=== PATIENT | male | born 1940 | race Caucasian/White ===

== ENCOUNTER 2017-06-09 12:26 | Emergency (ER) | payer MEDICARE, OTHER ==
[~2017-06-09] VITALS: Ht 175.3 cm; Wt 106.6 kg
[~2017-06-09 12:26] MED LIST: ARIXTRA; BYSTOLIC 5 MG5 M1 PO; ELIQUIS2.5 MG PO; FISHOIL PO; IBUPROFEN 200200 M1 PO; LIPITOR10 MG PO; LOSARTAN POTAS100 MG PO; MICARDIS HCT 81 EACH PO; MOM; OXYCONTIN10 M1 PO; OXYIR5 MG PO; PERCOCET PO; TRICOR145 MG PO; TYLENOL PM EX-1 EACH PO
[2017-06-09 13:32] LABS: HEMATOCRIT 45.3 % (42.0-52.0); HEMOGLOBIN 15.2 gm/dL (14.0-18.0); MCH 29.6 pg (26.0-34.0); MCHC 33.5 g/dL (28.0-37.0); MCV 88.4 fL (80.0-100.0); MPV 8.6 fl. (7.2-11.1); NUCLEATED RBCS 0 /100WBC; PLATELET COUNT* 166 thou/uL (150-400); RBC 5.13 mil/uL (4.50-6.00); WBC 12.7 thou/uL (4.0-11.0)
[2017-06-09 13:39] LABS: POTASSIUM 3.6 mmol/L (3.5-5.1)
[2017-06-09 13:40] LABS: APTT 33.4 Seconds (25.0-31.3); INR 1.2; PROTIME 11.2 Seconds (9.20-11.50)
[2017-06-09 13:44] LABS: ALBUMIN 3.1 g/dL (3.4-5.0); TOTAL BILIRUBIN 0.7 mg/dL (<0.1-1.0); TOTAL PROTEIN 7.6 g/dL (6.4-8.2)
[2017-06-09 13:55] LABS: ABSOLUTE LYMPHOCYTES 0.8 thou/uL (0.8-5.3); ABSOLUTE MONOCYTES 1.1 thou/uL (0.0-1.2); ABSOLUTE NEUTROPHILS 10.8 thou/uL (1.6-8.1); ATYPICAL LYMPHS 2 %; PLATELET ESTIMATE ADEQUATE
[2017-06-09] MEDS ORDERED: NORCO 5-325 TA1 EACH PO (15:27)
[2017-06-09] MEDS ORDERED: CIPROFLOXACIN500 M1 PO (15:27)
[2017-06-09] MEDS ORDERED: NYSTATIN15 G3 TOP (15:27)
[2017-06-09 15:57] VITALS: BP 133/80
== END 2017-06-09 15:58 | disposition home or self-care (01) ==
LOC: M.ERS 12:26
PROVIDERS: Family Medicine
DX: N45.1 Epididymitis (principal); N50.89 Other specified disorders of the male genital organs; I10 Essential (primary) hypertension; E78.5 Hyperlipidemia, unspecified; M79.604 Pain in right leg; M79.605 Pain in left leg

== ENCOUNTER → 2017-07-13 | Outpatient (CLI) | payer MEDICARE, OTHER ==
[~2017-07-13] MED LIST changes: +CIPROFLOXACIN500 M1 PO; +NORCO 5-325 TA1 EACH PO; +NYSTATIN15 G3 TOP
[2017-07-13 09:02] LABS: ABSOLUTE EOSINOPHILS 0.1 thou/uL (0.0-0.7); ABSOLUTE LYMPHOCYTES 1.7 thou/uL (0.8-5.3); ABSOLUTE MONOCYTES 0.6 thou/uL (0.0-1.2); ABSOLUTE NEUTROPHILS 4.3 thou/uL (1.6-8.1); BASOPHILS 0.5 %; EOSINOPHILS 2.1 %; HEMATOCRIT 40.1 % (42.0-52.0); HEMOGLOBIN 13.5 gm/dL (14.0-18.0); LYMPHOCYTES 24.7 %; MCHC 33.6 g/dL (28.0-37.0); MCV 86.3 fL (80.0-100.0); MONOCYTES 8.3 %; MPV 8.1 fl. (7.2-11.1); NUCLEATED RBCS 0 /100WBC; PLATELET COUNT* 257 thou/uL (150-400); POLYS 64.4 %; RBC 4.64 mil/uL (4.50-6.00); WBC 6.7 thou/uL (4.0-11.0)
[2017-07-13 09:08] LABS: CALCIUM 9.7 mg/dL (8.5-10.1); CREATININE 1.5 mg/dL (0.6-1.3); POTASSIUM 3.9 mmol/L (3.5-5.1)
== END ==
LOC: M.ULTRA 08:34
PROVIDERS: Urology
DX: N43.3 Hydrocele, unspecified (principal); N50.82 Scrotal pain

== ENCOUNTER → 2017-08-08 | Outpatient (CLI) | payer MEDICARE, OTHER | LOC: M.ULTRA 07:35 | DX: N28.1 Cyst of kidney, acquired (principal) ==

== ENCOUNTER → 2017-10-17 | Outpatient (CLI) | payer MEDICARE, OTHER | LOC: M.ULTRA 06:38 | DX: N43.2 Other hydrocele (principal); N45.1 Epididymitis; N45.3 Epididymo-orchitis ==

== ENCOUNTER → 2018-01-29 | Outpatient (CLI) | payer MEDICARE, OTHER | LOC: M.ULTRA 07:08 | DX: G45.9 Transient cerebral ischemic attack, unspecified (principal); I10 Essential (primary) hypertension; R55 Syncope and collapse; E78.5 Hyperlipidemia, unspecified ==

== ENCOUNTER 2018-11-30 16:49 | Emergency (ER) | payer MEDICARE, OTHER ==
[~2018-11-30] VITALS: Ht 175.3 cm; Wt 104.3 kg
[2018-11-30] MEDS ORDERED: PREDNISONE 20 M20 MG PO (17:52)
[2018-11-30] MEDS ORDERED: CLARITIN10 MG PO (17:52)
[2018-11-30 18:07] VITALS: BP 193/95
== END 2018-11-30 18:07 | disposition home or self-care (01) ==
LOC: M.ERS 16:49
DX: T63.441A Toxic effect of venom of bees, accidental (unintentional), initial encounter (principal); E78.5 Hyperlipidemia, unspecified; I10 Essential (primary) hypertension; Z90.49 Acquired absence of other specified parts of digestive tract; Z98.41 Cataract extraction status, right eye; Z98.42 Cataract extraction status, left eye; Z96.652 Presence of left artificial knee joint; Z91.030 Bee allergy status; Z98.890 Other specified postprocedural states; Y92.89 Other specified places as the place of occurrence of the external cause

== ENCOUNTER 2021-04-10 18:32 | Inpatient (IN) | payer MEDICARE, OTHER ==
[~2021-04-10] VITALS: Ht 172.7 cm; Wt 99.8 kg
[~2021-04-10 18:32] MED LIST changes: +CLARITIN10 MG PO; +PREDNISONE 20 M20 MG PO
[2021-04-10 19:05] VITALS: BP 211/137
[2021-04-10 20:40] LABS: ABSOLUTE EOSINOPHILS 0.1 thou/uL (0.0-0.7); ABSOLUTE MONOCYTES 0.6 thou/uL (0.0-1.2); BASOPHILS 0.4 %; EOSINOPHILS 1.5 %; HEMOGLOBIN 16.3 gm/dL (14.0-18.0); LYMPHOCYTES 25.9 %; MCH 31.2 pg (26.0-34.0); MCHC 33.9 g/dL (28.0-37.0); MCV 91.9 fL (80.0-100.0); MONOCYTES 8.2 %; MPV 8.1 fl. (7.2-11.1); NUCLEATED RBCS 0 /100WBC; PLATELET COUNT* 222 thou/uL (150-400); RBC 5.22 mil/uL (4.50-6.00); RDW-CV 13.3 % (10.5-14.5); WBC 7.8 thou/uL (4.0-11.0)
[2021-04-10 20:49] LABS: CALCIUM 9.1 mg/dL (8.5-10.1); CREATININE 1.2 mg/dL (0.6-1.3); POTASSIUM 3.7 mmol/L (3.5-5.1)
[2021-04-10 20:51] LABS: INR 1.1; PROTIME 11.4 Seconds (9.20-11.50)
[2021-04-10 20:59] LABS: ALBUMIN 3.6 g/dL (3.4-5.0); TOTAL PROTEIN 7.5 g/dL (6.4-8.2)
[2021-04-10 21:19] LABS: URINE BILIRUBIN NEGATIVE (Negative); URINE BLOOD NEGATIVE (Negative); URINE CLARITY CLEAR; URINE COLOR YELLOW; URINE GLUCOSE-RANDOM NEGATIVE (Negative); URINE KETONES NEGATIVE (Negative); URINE LEUKOCYTES-REFLEX NEGATIVE (Negative); URINE NITRITE-REFLEX NEGATIVE (Negative); URINE PROTEIN 1+ (Negative); URINE UROBILINOGEN 0.2 E.U./dl (0.2-1.0)
[2021-04-11 03:24] VITALS: BP 157/92
[2021-04-11 07:30] VITALS: BP 168/86
--- NOTE | 2021-04-11 10:39 | EKG ---
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 : 1940 Requested By: Haydee Reyes Order Number: [id number] MD: Viet Nelson Measurements Intervals [place] Rate: 76 P: SD: QRS: -21 QRSD: 98 T: 23 QT: 425 QTc: 478 Interpretive Statements Atrial fibrillation Borderline left axis deviation Anteroseptal infarct, old Compared to ECG 03/30/2017 09:16:24 Myocardial infarct finding now present Sinus rhythm no longer present Electronically Signed On 04-11-2021 10:39:42 CREDIT CONTROL CLERK by Viet Nelson [email or web address] <ELECTRONICALLY SIGNED> By: Yeimi Nelson MD, FACC 04/11/21 1039 17 17 Yeimi Nelson MD, FACC /EPI
[2021-04-11 11:40] VITALS: BP 169/97
[2021-04-11 15:27] VITALS: BP 173/99
[2021-04-11 19:24] VITALS: BP 183/94
[2021-04-11 23:45] VITALS: BP 129/74
[2021-04-12] VITALS (8 sets, daily range): BP systolic 168–223; BP diastolic 83–139
[2021-04-12 04:06] LABS: ALBUMIN 3.4 g/dL (3.4-5.0); ALKALINE PHOSPHATASE 75 U/L (46-116); ANION GAP 8 mmol/L (7-16); BUN 32 mg/dL (7-18); CALCIUM 8.9 mg/dL (8.5-10.1); CHLORIDE 104 mmol/L (98-107); CHOLESTEROL 225 mg/dL (<200); CO2 28 mmol/L (21-32); CREATININE 1.3 mg/dL (0.6-1.3); GLUCOSE 99 mg/dL (70-99); HDL CHOLESTEROL 40 mg/dL (>40); LDL CHOLESTEROL 166 mg/dL (<100); POTASSIUM 3.1 mmol/L (3.5-5.1); SGOT 22 U/L (15-37); SGPT 32 U/L (30-65); SODIUM 140 mmol/L (136-145); TC:HDL 5.6 Ratio (Not establshd); TOTAL BILIRUBIN 1.6 mg/dL (<0.1-1.0); TOTAL PROTEIN 7.1 g/dL (6.4-8.2); TRIGLYCERIDE 99 mg/dL (<150); VLDL 20 mg/dL (<40)
[2021-04-12 04:07] LABS: SERUM ASSESSMENT Clear
--- NOTE | 2021-04-12 17:39 | 2DMMODE ---
[place] [address] 2 D/M-MODE ECHOCARDIOGRAM Name: MICHAEL RICE Batool Room: [facility] ADM IN .R.#: [id number] Admission: 04/12/21 Attend Phys: Kina Simon Discharge: Date of : 42 Date of Service: 04/12/21 1738 Report #: [id number] THIS REPORT FOR: cc: Vasu Birmingham,Omero Edmonds MD [facility] ~ APPROVED REPORT Study performed: 04/12/2021 14:44:58 EXAM: Comprehensive 2D, Doppler, and color-flow Echocardiogram Patient Location: In-Patient Room #: ER Status: routine BSA: 2.13 HR: 78 bpm BP: 200/128 mmHg Rhythm: Atrial Fibrillation Other Information Study Quality: Good Indications CVA/TIA Atrial Fibrillation Echo Enhancing Agent Indication: Rule out Shunt Agent(s) / Amount(s) Used: Agitated Saline 10 cc 2D Dimensions IVSd: 13.26 (7-11mm) LVOT Diam: 20.26 (18-24mm) LVDd: 48.44 mm PWd: 9.92 (7-11mm) Ascending Ao: 32.80 (22-36mm) LVDs: 34.63 (25-40mm) Aortic Root: 33.52 mm Volumes Left Atrial Volume (Systole) LA ESV Index: 36.30 mL/m2 Aortic Valve AoV Peak Wali.: 0.99 m/s AO Peak Gr.: 3.92 mmHg LVOT Max P.96 [place] [address] 2 D/M-MODE ECHOCARDIOGRAM Name: MICHAEL RICE Room: [address] IN [facility]#: [id number] Admission: 04/12/21 Attend Phys: Kina Simon Discharge: Date of : 42 Date of Service: 04/12/21 1738 Report #: [id number] Mean Gr.: 2.26 mmHg LVOT Mean P.12 mmHg LVOT Max V: 0.70 m/s AO V2 VTI: 18.33 cm LVOT Mean V: 0.50 m/s JAMISON (VTI): 2.39 cm2 LVOT V1 VTI: 13.60 cm TDI Lateral E' Wali.: 0.11 m/s Pulmonary Valve PV Peak Wali.: 0.85 m/s PV Peak Gr.: 2.87 mmHg Tricuspid Valve RAP Estimate: 5.00 mmHg TR Peak Gr.: 26.18 mmHg RVSP: 31.00 mmHg PA Pressure: 31.00 mmHg Left Ventricle The left ventricle is normal size. There is normal LV segmental wall motion. Mild septal hypertrophy is present. Left ventricular systolic function is normal. The left ventricular ejection fraction is within the normal range. LVEF is 55-60%. This study is not technically sufficient to allow evaluation of the LV diastolic function due to atrial fibrillation. Right Ventricle The right ventricle is normal size. The right ventricular systolic function is normal. Atria Left atrium is mildly dilated. The interatrial septum is intact with no evidence for an atrial septal defect. The right atrium size is normal. Aortic Valve The aortic valve is normal in structure. No aortic regurgitation is present. There is no aortic valvular stenosis. Mitral Valve The mitral valve is normal in structure. Trace mitral regurgitation. No evidence of mitral valve stenosis. Tricuspid Valve The tricuspid valve is normal in structure. Mild tricuspid regurgitation. Mild pulmonary hypertension[place] [address] 2 D/M-MODE ECHOCARDIOGRAM Name: MICHAEL RICE Room: [address] IN [facility]#: [id number] Admission: 04/12/21 Attend Phys: Kina Simon Discharge: Date of : 42 Date of Service: 04/12/21 1738 Report #: [id number] The pulmonary valve is normal in structure. There is no pulmonic valvular regurgitation. Great Vessels The aortic root is normal in size. IVC is normal in size and collapses >50% with inspiration. Pericardium Trace pericardial effusion. <Conclusion> LVEF is 55-60%. Left atrium is mildly dilated. The interatrial septum is intact with no evidence for an atrial septal defect. Trace pericardial effusion. <ELECTRONICALLY SIGNED> By: Omero Wheatley MD, FACC 04/12/21 1738 1738 1738 Omero Wheatley MD, FACC /INF
[2021-04-13 00:01] VITALS: BP 162/92
[2021-04-13 02:06] LABS: GLYCOHEMOGLOBIN (HGB A1C) 5.6 % (4.8-5.6)
[2021-04-13 04:26] LABS: ABSOLUTE EOSINOPHILS 0.1 thou/uL (0.0-0.7); ABSOLUTE LYMPHOCYTES 1.9 thou/uL (0.8-5.3); ABSOLUTE MONOCYTES 0.7 thou/uL (0.0-1.2); ABSOLUTE NEUTROPHILS 5.6 thou/uL (1.6-8.1); BASOPHILS 0.4 %; EOSINOPHILS 0.9 %; HEMATOCRIT 47.9 % (42.0-52.0); HEMOGLOBIN 15.9 gm/dL (14.0-18.0); LYMPHOCYTES 22.3 %; MCH 30.6 pg (26.0-34.0); MCHC 33.3 g/dL (28.0-37.0); MCV 91.9 fL (80.0-100.0); MPV 8.6 fl. (7.2-11.1); NUCLEATED RBCS 0 /100WBC; PLATELET COUNT* 202 thou/uL (150-400); POLYS 67.4 %; RBC 5.21 mil/uL (4.50-6.00); RDW-CV 13.5 % (10.5-14.5); WBC 8.3 thou/uL (4.0-11.0)
[2021-04-13 05:10] LABS: ALBUMIN 3.2 g/dL (3.4-5.0); CALCIUM 8.8 mg/dL (8.5-10.1); CREATININE 1.3 mg/dL (0.6-1.3); POTASSIUM 3.2 mmol/L (3.5-5.1); TOTAL BILIRUBIN 1.7 mg/dL (<0.1-1.0); TOTAL PROTEIN 6.9 g/dL (6.4-8.2)
[2021-04-13 05:28] VITALS: BP 158/96
[2021-04-13 08:00] VITALS: BP 158/89
[2021-04-13] MEDS ORDERED: PLAVIX 75 MG TA75 MG PO (10:10)
[2021-04-13] MEDS ORDERED: ASPIRIN325 PO (10:10)
[2021-04-13] MEDS ORDERED: LIPITOR 40 MG T40 M1 PO (10:10)
--- NOTE | 2021-04-13 11:23 | EKG ---
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: : 1940 Requested By: Haydee Reyes Order Number: [id number] MD: Omero Wheatley Measurements Intervals [place] Rate: 79 P: ND: QRS: -8 QRSD: 97 T: -6 QT: 420 QTc: 482 Interpretive Statements Atrial fibrillation Borderline low voltage, extremity leads Borderline prolonged QT interval Compared to ECG 04/10/2021 19:18:33 no change Electronically Signed On 04-13-2021 11:23:00 TUBE ROOM SUPERVISOR by Omero Wheatley [email or web address] <ELECTRONICALLY SIGNED> By: Omero Wheatley MD, [facility] 04/13/21 1123 03 03 Omero Wheatley MD, [facility] /EPI
[2021-04-13 12:00] VITALS: BP 167/98
[2021-04-13 16:00] VITALS: BP 182/110
[2021-04-13 21:00] VITALS: BP 210/118
[2021-04-14] VITALS: BP 143/86
[2021-04-14 04:00] VITALS: BP 175/110
[2021-04-14 04:24] LABS: HEMATOCRIT 50.4 % (42.0-52.0); HEMOGLOBIN 16.7 gm/dL (14.0-18.0); MCH 30.8 pg (26.0-34.0); MCHC 33.2 g/dL (28.0-37.0); MPV 8.6 fl. (7.2-11.1); RBC 5.42 mil/uL (4.50-6.00); RDW-CV 13.4 % (10.5-14.5); WBC 10.5 thou/uL (4.0-11.0)
[2021-04-14 04:47] LABS: ALBUMIN 3.6 g/dL (3.4-5.0); CREATININE 1.2 mg/dL (0.6-1.3); POTASSIUM 3.8 mmol/L (3.5-5.1); TOTAL BILIRUBIN 1.7 mg/dL (<0.1-1.0); TOTAL PROTEIN 7.6 g/dL (6.4-8.2)
[2021-04-14 08:00] VITALS: BP 165/110
[2021-04-14] MEDS ORDERED: ELIQUIS5 MG PO (09:55)
[2021-04-14 12:45] VITALS: BP 165/110
== END 2021-04-14 14:15 | disposition home or self-care (01) | DRG 65 ==
LOC: M.ERS 18:32 → M.TBA-ER 04-11 05:29 → M.2W 04-12 09:12 → M.TBA-ER 04-12 09:12 → M.2W 04-12 20:45
PROVIDERS: Emergency Medicine; Internal Medicine; ADMIT Internal Medicine; ATTEND Internal Medicine
DX: I63.9 Cerebral infarction, unspecified (principal); I50.32 Chronic diastolic (congestive) heart failure; I48.21 Permanent atrial fibrillation; D68.59 Other primary thrombophilia; G83.24 Monoplegia of upper limb affecting left nondominant side; Z91.030 Bee allergy status; Z79.01 Long term (current) use of anticoagulants; I10 Essential (primary) hypertension; E78.5 Hyperlipidemia, unspecified; E66.9 Obesity, unspecified; Z68.33 Body mass index [BMI] 33.0-33.9, adult; Z20.822 Contact with and (suspected) exposure to COVID-19